=== PATIENT | male | born 1995 | race Caucasian/White ===

== ENCOUNTER → 2023-04-13 | Outpatient (REF) | payer BC, OTHER | LOC: M SFHCRHEU 10:39 | PROVIDERS: ATTEND Internal Medicine | DX: M25.50 Pain in unspecified joint (principal) ==

== ENCOUNTER → 2024-09-19 | Outpatient (CLI) | payer OTHER | LOC: M PLAIMG 08:52 | PROVIDERS: ATTEND Physician Assistant | DX: M54.31 Sciatica, right side (principal) ==